=== PATIENT | male | born 1965 | race African-American/Black ===

== ENCOUNTER 2017-09-01 08:39 | Emergency (ER) | payer OTHER ==
[~2017-09-01] VITALS: Ht 175.3 cm; Wt 128.6 kg
[~2017-09-01 08:39] MED LIST: CARV3.1242 PO; SACU1TAB PO
[2017-09-01] MEDS ORDERED: ASPIRIN 81MG TABLET PO ONE (09:00)
[2017-09-01] MEDS: NITROGLYCERIN 0.4MG TABLET SL SL PRN ×3 (09:01→09:13)
[2017-09-01 09:05] LABS: HEMATOCRIT. 37.7 % (42.0-52.0); HEMOGLOBIN. 12.5 g/dL (14.0-18.0); MEAN CORPUSCULAR HEMOGLOBIN 30.1 pg (28.0-32.0); MEAN CORPUSCULAR VOLUME 90.8 fL (80.0-94.0); MEAN PLATELET VOLUME 7.6 fl (7.4-10.4); PLATELET 415 x1000/uL (130-400); RED BLOOD CELL COUNT 4.16 mill/uL (4.7-6.1); RED CELL DISTRIBUTION WIDTH 12.5 % (11.6-14.6)
[2017-09-01] MEDS ORDERED: MORPHINE SULFATE 4 MG/ML CPJ (NOT FOR IM USE) IV ONE (09:15)
[2017-09-01] MEDS ORDERED: ONDANSETRON HCL 4MG/2ML VIAL IV ONE (09:15)
[2017-09-01 09:22] LABS: INR 1.2
[2017-09-01] MEDS ORDERED: MORPHINE SULFATE 2 MG/ML CPJ (NOT FOR IM USE) IV ONE (09:28)
[2017-09-01 09:31] VITALS: BP 119/67
[2017-09-01 09:31] LABS: CARBON DIOXIDE 27 mEq/L (21-32); CHLORIDE 98 mEq/L (98-107)
[2017-09-01 09:44] LABS: PLATELET ESTIMATE SLIGHTLY DECREASED
== END 2017-09-01 09:38 | disposition short-term general hospital (02) ==
LOC: ER 08:55
DX: I21.3 ST elevation (STEMI) myocardial infarction of unspecified site (principal); I50.9 Heart failure, unspecified; I11.0 Hypertensive heart disease with heart failure; I25.10 Atherosclerotic heart disease of native coronary artery without angina pectoris
CPT/HCPCS: 36415; 71010; 80053; 83880; 84484; 85025; 85610; 93005; 96374; 96375; 99291; J2270; J2405; Z7610

== ENCOUNTER 2019-02-15 12:51 | Emergency (ER) | payer MEDICAID, OTHER ==
[~2019-02-15] VITALS: Ht 177.8 cm; Wt 150.0 kg
[2019-02-15] MEDS ORDERED: SODIUM CHLORIDE 0.9% 100 ML IV ONE (14:15)
[2019-02-15] MEDS ORDERED: ONDANSETRON HCL 4MG/2ML INJ IV ONE (14:15)
[2019-02-15] MEDS ORDERED: MECLIZINE 25MG TABLET PO ONE (14:15)
[2019-02-15] MEDS ORDERED: LORAZEPAM 2MG/ML CPJ IV ONE (14:15)
[2019-02-15] MEDS ORDERED: DIAZEPAM 5 MG/ML 2ML CPJ IV ONE (15:45)
[2019-02-15] MEDS ORDERED: METOCLOPRAMIDE HCL 10MG/2ML VIAL IV ONE (15:45)
[2019-02-15] MEDS ORDERED: KETOROLAC 60MG/2ML VIAL IM ONE (18:45)
[2019-02-15 19:13] VITALS: BP 159/94
== END 2019-02-15 19:44 | disposition home or self-care (01) ==
LOC: ER 12:51
DX: R42 Dizziness and giddiness (principal); I11.0 Hypertensive heart disease with heart failure; I50.9 Heart failure, unspecified
CPT/HCPCS: 96361; 96372; 96374; 96375; 99283; J1885; J2060; J2405; J2765; J3360; J7050; J8597; Z7610